=== PATIENT | male | born 1955 | race Caucasian/White ===

== ENCOUNTER → 2018-03-13 | Outpatient (CLI) | payer OTHER ==
[~2018-03-13] MED LIST: ALLO300T27 PO; ASPI-1197 PO; ATOR40TA69 PO; GLIM4TAB3 PO; INSLAN SQ; LOSA50TA2 PO; SITA1TAB6 PO; SODI650T PO
== END | disposition home or self-care (01) ==
LOC: RAH 16:54
PROVIDERS: ATTEND Urology
DX: N20.0 Calculus of kidney (principal)
CPT/HCPCS: 74018; 76100

== ENCOUNTER → 2018-03-16 | Outpatient (CLI) | payer OTHER | END | disposition home or self-care (01) | LOC: RAH 12:18 | PROVIDERS: ATTEND Urology | DX: K80.20 Calculus of gallbladder without cholecystitis without obstruction (principal); N20.0 Calculus of kidney; K57.90 Diverticulosis of intestine, part unspecified, without perforation or abscess without bleeding; I70.90 Unspecified atherosclerosis; M47.895 Other spondylosis, thoracolumbar region | CPT/HCPCS: 74176 ==

== ENCOUNTER → 2018-06-15 | Outpatient (CLI) | payer OTHER | END | disposition home or self-care (01) | LOC: RAH 14:21 | PROVIDERS: ATTEND Urology | DX: N20.0 Calculus of kidney (principal) | CPT/HCPCS: 74018; 76100 ==

== ENCOUNTER → 2022-05-24 | Outpatient (CLI) | payer OTHER ==
[~2022-05-24] MED LIST changes: -GLIM4TAB3 PO; +GLIM4TAB36 PO
== END | disposition home or self-care (01) ==
LOC: RAH 13:35
PROVIDERS: ATTEND Internal Medicine Cardiovascular Disease
DX: Z13.6 Encounter for screening for cardiovascular disorders (principal); R93.1 Abnormal findings on diagnostic imaging of heart and coronary circulation
CPT/HCPCS: 75571

== ENCOUNTER → 2022-07-19 | Outpatient (CLI) | payer MEDICARE ==
[~2022-07-19] MED LIST changes: +REGADENOSON 0.4 MG/5 ML PF SYG IVP ONE
== END | disposition home or self-care (01) ==
LOC: SHCH 08:45
PROVIDERS: ATTEND Internal Medicine Cardiovascular Disease
DX: I49.1 Atrial premature depolarization (principal); R00.0 Tachycardia, unspecified; I25.10 Atherosclerotic heart disease of native coronary artery without angina pectoris; Z79.899 Other long term (current) drug therapy
CPT/HCPCS: 78452; 96374; 93017; J2785; A9500 ×2

== ENCOUNTER → 2022-08-24 | Outpatient (CLI) | payer MEDICARE ==
[~2022-08-24] MED LIST changes: +LOSA-418 PO; -LOSA50TA2 PO; -REGADENOSON 0.4 MG/5 ML PF SYG IVP ONE
[2022-08-24 16:32] LABS: CHOLESTEROL 267 mg/dL (<200); HDL CHOLESTEROL 44 mg/dL (29-71); LDL DIRECT 193 mg/dL (0-99); TRIGLYCERIDES 157 mg/dL (30-200)
== END | disposition home or self-care (01) ==
LOC: LAB 14:42
PROVIDERS: ATTEND Internal Medicine Cardiovascular Disease
DX: E78.5 Hyperlipidemia, unspecified (principal)
CPT/HCPCS: 36415; 80061

== ENCOUNTER → 2023-09-30 | Outpatient (CLI) | payer MEDICARE ==
[2023-09-30 15:45] LABS: CHOLESTEROL 252 mg/dL (<200); HDL CHOLESTEROL 41 mg/dL (29-71); LDL DIRECT 168 mg/dL (0-99); TRIGLYCERIDES 228 mg/dL (30-200)
== END | disposition home or self-care (01) ==
LOC: LAB 12:02
PROVIDERS: ATTEND Internal Medicine Cardiovascular Disease
DX: E78.5 Hyperlipidemia, unspecified (principal)
CPT/HCPCS: 36415; 80061

== ENCOUNTER → 2024-06-01 | Outpatient (CLI) | payer MEDICARE ==
[2024-06-01] MEDS: REGADENOSON 0.4 MG/5 ML PF SYG IVP ONE (11:47)
--- NOTE | 2024-06-04 18:12 | HMCSR ---
APPROVED REPORT Height: 6 ft 2in Weight: 244 lbs TEST INDICATIONS CAD The imaging protocol used to acquire images was Rest Tc-99m/stress Tc-99m 1 day Consent: The procedure was explained and understood by the patient. Informerd consent was witnessed Jennifer SALDAÑA RN First, low dose rest was performed then high dose stress. RESTING DATA: The resting ekg shows: NSR Rest SPECT myocardial perfusion imaging was performed in supine position 83 minutes following the int ravenous injection of 11.3 mCi of Tc-99 Sestamibi. Time of rest injection: 08:29: Date: 06/01/2024 Time of rest imagin:52: Date: 06/01/2024 PHARMACOLOGIC STRESS: Pharmacologic stress test was performed by injecting regadenoson 0.4 mg IV push followed by the intra venous injection of 31.2 mCi of Tc-99 Sestamibi. Time of stress injection: 10:19: Date: 06/01/2024 Time of stress imagin:51: Date: 06/01/2024 Heart Rate at time of stress injection: 59 bpm. Gated Stress SPECT was performed 92 minutes after stress injection. The images were gated to evaluate regional wall motion and calculate left ventricular ejection fracti on. STRESS DETAILS Reason for Termination: Infusion complete Stress Symptoms: No chest pain or symptoms Max HR Achieved: 85 bpm % of APMHR Achieved: 56 Max Blood Pressure: 159/75 mmHg Stress ECG: NSR Study quality was good. Lung uptake was Normal. Artifact: increased GI uptake LEFT VENTRICLE Size: The left ventricular size is normal. Systolic Function:The left ventricular systolic function is normal. Wall Motion: No regional wall motion abnormalities noted. The left ventricular ejection fraction was calculated to be 57%.TID = 1.00. LV PERFUSION Small, mild, partially reversible defect at apex could be artifact or low risk ischemia. RV Size/Shape Normal RV Conclusion The left ventricular ejection fraction was calculated to be 57%.TID = 1.00. Small, mild, partially reversible defect at apex could be artifact or low risk ischemia. Low risk.
== END | disposition home or self-care (01) ==
LOC: SHCH 08:12
PROVIDERS: ATTEND Internal Medicine Cardiovascular Disease
DX: Z01.818 Encounter for other preprocedural examination (principal); I25.10 Atherosclerotic heart disease of native coronary artery without angina pectoris
CPT/HCPCS: 78452; 93017; J2785; A9500 ×2